=== PATIENT | male | born 1985 | race Caucasian/White ===

== ENCOUNTER 2020-02-06 19:02 | Emergency (ER) | payer SELFPAY ==
[~2020-02-06 19:02] MED LIST: ATARAX25 MG PO; MEDROL DOSEPAK4 MG PO; MUCINEX600 MG PO; NKHM; PREDNICOT20 MG PO; PREDNISONE20 MG PO; ROBITUSSIN5 ML PO; ZITHROMAX Z PA250 MG PO
[2020-02-06 19:40] LABS: URINE AMPHETAMINES < 1000 (1000ng/ml); URINE BARBITURATES < 200 (200ng/ml); URINE BENZODIAZEPINES < 200 (200ng/ml); URINE CANNABINOIDS (THC) < 50 (50ng/ml); URINE COCAINE < 300 (300ng/ml); URINE METHADONE < 300 (300ng/ml); URINE OPIATES < 300 (300ng/ml)
[2020-02-06 19:41] LABS: URINE PHENCYCLIDINE < 25 (25ng/ml)
== END 2020-02-06 20:13 | disposition home or self-care (01) ==
LOC: ED 19:02
PROVIDERS: Emergency Medicine
DX: S00.03XA Contusion of scalp, initial encounter (principal); F10.920 Alcohol use, unspecified with intoxication, uncomplicated; R47.81 Slurred speech; R55 Syncope and collapse; F17.200 Nicotine dependence, unspecified, uncomplicated; Z79.2 Long term (current) use of antibiotics; Z79.899 Other long term (current) drug therapy; Y08.89XA Assault by other specified means, initial encounter; Y93.89 Activity, other specified; Y92.89 Other specified places as the place of occurrence of the external cause; Y99.8 Other external cause status

== ENCOUNTER → 2021-10-22 | Outpatient (CLI) | payer OTHER | END | disposition home or self-care (01) | LOC: COVID19 16:12 | PROVIDERS: ATTEND Internal Medicine | DX: Z20.822 Contact with and (suspected) exposure to COVID-19 (principal) ==

== ENCOUNTER 2025-07-19 20:45 | Emergency (ER) | payer SELFPAY ==
[~2025-07-19] VITALS: Ht 162.5 cm; Wt 68.0 kg
== END 2025-07-19 21:38 | disposition left against medical advice (07) ==
LOC: ED 20:45
DX: S80.12XA Contusion of left lower leg, initial encounter (principal); Z53.29 Procedure and treatment not carried out because of patient's decision for other reasons; X58.XXXA Exposure to other specified factors, initial encounter; Y93.89 Activity, other specified; Y92.89 Other specified places as the place of occurrence of the external cause; Y99.8 Other external cause status